=== PATIENT | male | born 1940 | race Caucasian/White ===

== ENCOUNTER → 2017-06-19 | Outpatient (CLI) | payer MEDICARE, OTHER | END | disposition home or self-care (01) | LOC: CFH 08:37 | PROVIDERS: ATTEND Internal Medicine Cardiovascular Disease | DX: E78.5 Hyperlipidemia, unspecified (principal); I10 Essential (primary) hypertension; R79.89 Other specified abnormal findings of blood chemistry | CPT/HCPCS: 36415; 80053; 80061; 83036 ==

== ENCOUNTER → 2017-10-23 | Outpatient (CLI) | payer MEDICARE, OTHER | END | disposition home or self-care (01) | LOC: CFH 08:23 | PROVIDERS: ATTEND Internal Medicine Cardiovascular Disease | DX: Z13.6 Encounter for screening for cardiovascular disorders (principal); I77.810 Thoracic aortic ectasia; I25.10 Atherosclerotic heart disease of native coronary artery without angina pectoris; I10 Essential (primary) hypertension; E78.5 Hyperlipidemia, unspecified | CPT/HCPCS: 75571 ==

== ENCOUNTER 2017-11-14 05:04 | Inpatient (IN) | payer MEDICARE, OTHER ==
[~2017-11-14] VITALS: Ht 175.3 cm; Wt 67.7 kg
[2017-11-14] MEDS ORDERED: PHENYLEPHRINE NASAL 1%, 15ML SPRAY ONE (05:33)
[2017-11-14] MEDS ORDERED: LIDOCAINE 1%, 10ML ONE (05:34)
[2017-11-14] MEDS ORDERED: PHENYLEPHRINE NASAL 0.5%, 15ML SPRAY NAS ONE (06:00)
[2017-11-14] MEDS ORDERED: LIDOCAINE 1%, 10ML INFIL ONE (06:00)
[2017-11-14 06:02] LABS: CULTURE INDICATED? YES; MICROSCOPIC INDICATED
[2017-11-14] MEDS ORDERED: SILVER NITRATE STICK TP ONE (06:04)
[2017-11-14] MEDS ORDERED: SODIUM CHLORIDE FLUSH 10ML SYR IVF ONE (06:30)
[2017-11-14 06:48] LABS: BASOPHILS % (AUTO) 0 % (0-1); EOSINOPHILS % (AUTO) 0 % (1-7); LYMPHOCYTES # (AUTO) 0.56 x10^3/uL (1-3.4); LYMPHOCYTES % (AUTO) 4 % (22-44); MD NO; MEAN CORPUSCULAR HEMOGLOBIN 32.4 pg (27.5-34.5); MEAN CORPUSCULAR HGB CONC 34.3 g/dL (33.2-36.2); MEAN CORPUSCULAR VOLUME 94.4 fL (81-97); MEAN PLATELET VOLUME 7.2 fL (7.4-10.4); MONOCYTES # (AUTO) 0.94 x10^3/uL (0.2-0.8); MONOCYTES % (AUTO) 7 % (2-9); NEUTROPHILS # (AUTO) 11.93 x10^3/uL (1.8-6.8); NEUTROPHILS % (AUTO) 89 % (42-75); PLATELET COUNT 200 x10^3/uL (130-400); RED BLOOD COUNT 4.32 x10^6/uL (4.38-5.82); RED CELL DISTRIBUTION WIDTH 12.6 % (9.4-14.8)
[2017-11-14] MEDS ORDERED: ACETAMINOPHEN 500 MG TABLET ONE ×2 (06:49→07:17)
[2017-11-14 06:53] LABS: INTERNATIONAL NORMALIZED RATIO 1.07 (0.93-1.1); PROTHROMBIN TIME 11.1 Seconds (9.6-11.5)
[2017-11-14 06:58] LABS: ALANINE AMINOTRANSFERASE 22 U/L (12-78); ALBUMIN 3.4 g/dL (3.4-5.0); ANION GAP 7 mmol/L (5-15); CALCIUM 9.1 mg/dL (8.5-10.1); CHLORIDE 99 mmol/L (98-107)
[2017-11-14 07:00] LABS: ALKALINE PHOSPHATASE 63 U/L (45-117); BILIRUBIN,TOTAL 1.2 mg/dL (0.2-1.0); TOTAL PROTEIN 7.3 g/dL (6.4-8.2)
[2017-11-14] MEDS ORDERED: ACETAMINOPHEN 500 MG TABLET PO ONE (07:00)
[2017-11-14] MEDS ORDERED: SIMV20TA3 PO (09:02)
[2017-11-14] MEDS ORDERED: AMLO10TA2 PO (09:02)
[2017-11-14] MEDS ORDERED: CARV6.25 PO (09:04)
[2017-11-14] MEDS ORDERED: LISI1TAB5 PO (09:05)
[2017-11-14] MEDS ORDERED: ASPI-496 PO (09:05)
[2017-11-14] MEDS ORDERED: MULT-257 PO (09:06)
[2017-11-14] MEDS ORDERED: CEFTRIAXONE PMX 1GM/50ML 50 ML IV ONE (09:30)
[2017-11-14] MEDS ORDERED: CEFTRIAXONE PMX 1GM/50ML 50 ML ONE (10:05)
[2017-11-14] MEDS ORDERED: CEFTRIAXONE 1,000 MG in SODIUM CHLORIDE 0.9% 50 ML IV SCH (11:00)
[2017-11-14] MEDS ORDERED: ONDANSETRON 2MG/ML, 2ML IVPush PRN (11:00)
[2017-11-14] MEDS ORDERED: ACETAMINOPHEN 325 MG TABLET PO PRN (11:00)
[2017-11-14] MEDS ORDERED: ONDANSETRON ODT 4 MG PO PRN (11:00)
[2017-11-14 11:11] VITALS: BP 135/81
[2017-11-14] MEDS: CEFTRIAXONE 1,000 MG in SODIUM CHLORIDE 0.9% 50 ML IVPB SCH (11:30)
[2017-11-14] MEDS: SODIUM CHLORIDE 0.9% 1,000 ML IV SCH ×2 (12:09→23:38)
[2017-11-14 12:26] LABS: HEMOGLOBIN A1C 5.5 % (4.2-6.3)
[2017-11-14 14:33] VITALS: BP 145/78
[2017-11-14] MEDS: POTASSIUM CHLORIDE 20 MEQ TAB.ER.PRT PO SCH (18:13)
[2017-11-14 20:00] VITALS: BP 162/82
[2017-11-14] MEDS: HYDROCHLOROTHIAZIDE 12.5 MG CAPSULE PO SCH (21:00)
[2017-11-14] MEDS: CARVEDILOL 6.25 MG TABLET PO SCH (21:00)
[2017-11-14] MEDS ORDERED: LISINOPRIL 20 MG TABLET PO SCH (21:00)
[2017-11-14] MEDS: SIMVASTATIN 20 MG TABLET PO SCH (21:00)
[2017-11-15 02:53] VITALS: BP 144/65
[2017-11-15 03:46] LABS: ALANINE AMINOTRANSFERASE 18 U/L (12-78); ALBUMIN 2.7 g/dL (3.4-5.0); ANION GAP 6 mmol/L (5-15); CALCIUM 8.3 mg/dL (8.5-10.1); CHLORIDE 105 mmol/L (98-107)
[2017-11-15 03:49] LABS: ALKALINE PHOSPHATASE 47 U/L (45-117); BILIRUBIN,TOTAL 0.6 mg/dL (0.2-1.0); CREATININE 0.87 mg/dL (0.7-1.3); TOTAL PROTEIN 5.9 g/dL (6.4-8.2)
[2017-11-15 03:51] LABS: BASOPHILS # (AUTO) 0.03 x10^3/uL (0-0.1); BASOPHILS % (AUTO) 1 % (0-1); EOSINOPHILS # (AUTO) 0.02 x10^3/uL (0-0.4); EOSINOPHILS % (AUTO) 0 % (1-7); LYMPHOCYTES # (AUTO) 0.99 x10^3/uL (1-3.4); LYMPHOCYTES % (AUTO) 17 % (22-44); MD NO; MEAN CORPUSCULAR HEMOGLOBIN 32.5 pg (27.5-34.5); MEAN CORPUSCULAR HGB CONC 33.7 g/dL (33.2-36.2); MEAN CORPUSCULAR VOLUME 96.5 fL (81-97); MEAN PLATELET VOLUME 7.3 fL (7.4-10.4); MONOCYTES # (AUTO) 0.76 x10^3/uL (0.2-0.8); MONOCYTES % (AUTO) 13 % (2-9); NEUTROPHILS # (AUTO) 4.15 x10^3/uL (1.8-6.8); NEUTROPHILS % (AUTO) 70 % (42-75); PLATELET COUNT 170 x10^3/uL (130-400); RED BLOOD COUNT 3.68 x10^6/uL (4.38-5.82); RED CELL DISTRIBUTION WIDTH 12.8 % (9.4-14.8)
[2017-11-15 07:40] VITALS: BP 140/74
[2017-11-15] MEDS: CARVEDILOL 6.25 MG TABLET PO SCH ×2 (09:12→20:56)
[2017-11-15] MEDS: HYDROCHLOROTHIAZIDE 12.5 MG CAPSULE PO SCH ×2 (09:13→20:55)
[2017-11-15] MEDS: MULTIVITAMIN 1 TABLET PO SCH (09:13)
[2017-11-15] MEDS: AMLODIPINE 5 MG TABLET PO SCH (09:13)
[2017-11-15] MEDS: POTASSIUM CHLORIDE 20 MEQ TAB.ER.PRT PO SCH (09:13)
[2017-11-15] MEDS: LISINOPRIL 20 MG TABLET PO SCH ×2 (09:13→20:55)
[2017-11-15] MEDS: SODIUM CHLORIDE 0.9% 1,000 ML IV SCH (12:13)
[2017-11-15] MEDS: CEFTRIAXONE 1,000 MG in SODIUM CHLORIDE 0.9% 50 ML IVPB SCH (12:13)
[2017-11-15 13:30] VITALS: BP 126/73
[2017-11-15] MEDS ORDERED: OXYMETAZOLINE NASAL SPRAY 0.05%, 15ML NAS PRN (18:30)
[2017-11-15 18:48] VITALS: BP 144/71
[2017-11-15] MEDS: SIMVASTATIN 20 MG TABLET PO SCH (20:54)
[2017-11-16 01:48] VITALS: BP 158/73
[2017-11-16] MEDS: SODIUM CHLORIDE 0.9% 1,000 ML IV SCH ×2 (02:28→18:43)
[2017-11-16 05:07] LABS: ALBUMIN 2.9 g/dL (3.4-5.0); ANION GAP 6 mmol/L (5-15); CALCIUM 8.7 mg/dL (8.5-10.1); CHLORIDE 102 mmol/L (98-107); CREATININE 0.85 mg/dL (0.7-1.3)
[2017-11-16 05:08] LABS: BASOPHILS # (AUTO) 0.03 x10^3/uL (0-0.1); BASOPHILS % (AUTO) 1 % (0-1); EOSINOPHILS # (AUTO) 0.09 x10^3/uL (0-0.4); EOSINOPHILS % (AUTO) 2 % (1-7); LYMPHOCYTES # (AUTO) 0.65 x10^3/uL (1-3.4); LYMPHOCYTES % (AUTO) 17 % (22-44); MD NO; MEAN CORPUSCULAR HEMOGLOBIN 32.9 pg (27.5-34.5); MEAN CORPUSCULAR HGB CONC 34.6 g/dL (33.2-36.2); MEAN CORPUSCULAR VOLUME 95.2 fL (81-97); MEAN PLATELET VOLUME 7.2 fL (7.4-10.4); MONOCYTES # (AUTO) 0.52 x10^3/uL (0.2-0.8); MONOCYTES % (AUTO) 13 % (2-9); NEUTROPHILS # (AUTO) 2.66 x10^3/uL (1.8-6.8); NEUTROPHILS % (AUTO) 67 % (42-75); PLATELET COUNT 196 x10^3/uL (130-400); RED BLOOD COUNT 3.72 x10^6/uL (4.38-5.82)
[2017-11-16 07:30] VITALS: BP 147/58
[2017-11-16] MEDS: HYDROCHLOROTHIAZIDE 12.5 MG CAPSULE PO SCH ×2 (09:09→19:50)
[2017-11-16] MEDS: MULTIVITAMIN 1 TABLET PO SCH (09:09)
[2017-11-16] MEDS: CARVEDILOL 6.25 MG TABLET PO SCH ×2 (09:10→14:26)
[2017-11-16] MEDS: AMLODIPINE 5 MG TABLET PO SCH (09:10)
[2017-11-16] MEDS: LISINOPRIL 20 MG TABLET PO SCH ×2 (09:10→14:26)
[2017-11-16] MEDS: CEFTRIAXONE 1,000 MG in SODIUM CHLORIDE 0.9% 50 ML IVPB SCH (11:26)
[2017-11-16 13:27] VITALS: BP 133/71
[2017-11-16 19:41] VITALS: BP 146/72
[2017-11-16] MEDS: SIMVASTATIN 20 MG TABLET PO SCH (19:50)
[2017-11-17 00:01] VITALS: BP 144/79
[2017-11-17 04:37] LABS: ALANINE AMINOTRANSFERASE 25 U/L (12-78); ALBUMIN 2.9 g/dL (3.4-5.0); ANION GAP 9 mmol/L (5-15); CALCIUM 9.2 mg/dL (8.5-10.1); CHLORIDE 104 mmol/L (98-107); CREATININE 0.83 mg/dL (0.7-1.3)
[2017-11-17 04:39] LABS: ALKALINE PHOSPHATASE 59 U/L (45-117); BILIRUBIN,TOTAL 0.6 mg/dL (0.2-1.0); TOTAL PROTEIN 6.6 g/dL (6.4-8.2)
[2017-11-17 05:40] LABS: BASOPHILS # (AUTO) 0.02 x10^3/uL (0-0.1); BASOPHILS % (AUTO) 1 % (0-1); EOSINOPHILS # (AUTO) 0.17 x10^3/uL (0-0.4); EOSINOPHILS % (AUTO) 4 % (1-7); LYMPHOCYTES # (AUTO) 1.23 x10^3/uL (1-3.4); LYMPHOCYTES % (AUTO) 31 % (22-44); MD SCAN; MEAN CORPUSCULAR HEMOGLOBIN 32.6 pg (27.5-34.5); MEAN CORPUSCULAR HGB CONC 34.1 g/dL (33.2-36.2); MEAN CORPUSCULAR VOLUME 95.5 fL (81-97); MEAN PLATELET VOLUME 7.5 fL (7.4-10.4); MONOCYTES # (AUTO) 0.65 x10^3/uL (0.2-0.8); MONOCYTES % (AUTO) 16 % (2-9); NEUTROPHILS % (AUTO) 48 % (42-75); PLATELET COUNT 260 x10^3/uL (130-400); RED BLOOD COUNT 3.98 x10^6/uL (4.38-5.82); RED CELL DISTRIBUTION WIDTH 13.1 % (9.4-14.8)
[2017-11-17 07:31] VITALS: BP 180/80
[2017-11-17] MEDS ORDERED: POTASSIUM CHLORIDE 20 MEQ TAB.ER.PRT PO ONE (08:00)
[2017-11-17] MEDS: SODIUM CHLORIDE 0.9% 1,000 ML IV SCH (08:08)
[2017-11-17] MEDS: MULTIVITAMIN 1 TABLET PO SCH (08:09)
[2017-11-17] MEDS: CARVEDILOL 6.25 MG TABLET PO SCH (08:09)
[2017-11-17] MEDS: HYDROCHLOROTHIAZIDE 12.5 MG CAPSULE PO SCH (08:09)
[2017-11-17] MEDS: LISINOPRIL 20 MG TABLET PO SCH (08:09)
[2017-11-17] MEDS: AMLODIPINE 5 MG TABLET PO SCH (08:10)
[2017-11-17] MEDS ORDERED: CEFD300C37 PO (09:59)
== END 2017-11-17 11:33 | disposition home or self-care (01) | DRG 982 ==
LOC: ED 05:25 → EDIP 09:11 → 3NW 10:53
PROVIDERS: ADMIT Internal Medicine; ATTEND Internal Medicine
PROC: 0W3Q7ZZ Control Bleeding in Respiratory Tract, Via Natural or Artificial Opening (ICD-10-PCS; principal; 2017-11-14)
DX: N39.0 Urinary tract infection, site not specified (principal); E44.0 Moderate protein-calorie malnutrition; I11.9 Hypertensive heart disease without heart failure; E78.5 Hyperlipidemia, unspecified; R04.0 Epistaxis; E87.6 Hypokalemia; R73.9 Hyperglycemia, unspecified; K80.20 Calculus of gallbladder without cholecystitis without obstruction; Z80.0 Family history of malignant neoplasm of digestive organs; Z85.46 Personal history of malignant neoplasm of prostate; Z92.3 Personal history of irradiation
CPT/HCPCS: 36415; 36430; 74176; 80048; 80053; 81001; 82040; 83036; 83605; 83735; 85025; 85610; 87040; 87077; 87086; 87186; 96374; J0696; J3490; J7030